=== PATIENT | male | born 1980 | race Caucasian/White ===

== ENCOUNTER 2022-10-11 12:31 | Emergency (ER) | payer OTHER ==
[~2022-10-11] VITALS: Ht 165.1 cm; Wt 72.6 kg
[2022-10-11 12:41] VITALS: BP 141/84
--- NOTE | 2022-10-11 12:52 | NUR ---
Patient ambulated to bed 6.
--- NOTE | 2022-10-11 13:49 | NUR ---
Patient returned from imaging.
[2022-10-11] MEDS: KETOROLAC 30 MG/ML VIAL IM ONE (14:41)
--- NOTE | 2022-10-11 15:00 | NUR ---
X-Ray at bedside.
--- NOTE | 2022-10-11 15:31 | NUR ---
Dr. Coles re-evaluating patient at bedside.
[2022-10-11] MEDS ORDERED: VOL25 PO (15:33)
[2022-10-11 15:41] VITALS: BP 141/84
--- NOTE | 2022-10-11 15:41 | NUR ---
Patient discharged with v/s stable. Written and verbal after care instructions given and explained. Patient alert, oriented and verbalized understanding of instructions. Ambulatory with steady gait. All questions addressed prior to discharge. ID band removed. Patient advised to follow up with PMD. Rx of diclofenac (sent) given. Patient educated on indication of medication including possible reaction and side effects. Opportunity to ask questions provided and answered.
--- NOTE | 2022-10-11 15:41 | NUR ---
The patient's care was reviewed and supervised by Oliva Cardona, RN, RN.
== END 2022-10-11 15:41 | disposition home or self-care (01) ==
LOC: MED 12:31
DX: S20.211A Contusion of right front wall of thorax, initial encounter (principal); S80.02XA Contusion of left knee, initial encounter; S80.01XA Contusion of right knee, initial encounter; S06.0X0A Concussion without loss of consciousness, initial encounter; M54.2 Cervicalgia; V49.88XA Car occupant (driver) (passenger) injured in other specified transport accidents, initial encounter; Z79.899 Other long term (current) drug therapy; Y93.89 Activity, other specified; Y92.89 Other specified places as the place of occurrence of the external cause; Y99.8 Other external cause status
CPT/HCPCS: 70450; 71045; 72125; 73562; 96372; 99284; J1885; Q0092